=== PATIENT | male | born 1990 | race African-American/Black ===

== ENCOUNTER 2016-03-19 05:23 | Day surgery (SDC) | payer BC ==
[2016-03-13 09:56] LABS: APPEARANCE,URINE CLEAR; BILIRUBIN,URINE NEGATIVE (NEGATIVE); GLUCOSE, URINE NEGATIVE (NEGATIVE); KETONES,URINE NEGATIVE (NEGATIVE); LEUKOCYTE ESTERASE,URINE NEGATIVE (NEGATIVE); NITRITE,URINE NEGATIVE (NEGATIVE); PROTEIN,URINE NEGATIVE (NEGATIVE); URINE SPECIFIC GRAVITY 1.021; UROBILINOGEN,URINE NEGATIVE mg/dL (<2.0)
[2016-03-13 11:03] LABS: HEMATOCRIT 40.5 % (37.9-51.0); HEMOGLOBIN 13.1 g/dL (13.5-17.0); HGB HCT DIFFERENCE -1.2; MEAN CORPUSCULAR HEMOGLOBIN 27.2 pg (27.0-33.4); MEAN CORPUSCULAR HGB CONC 32.3 g/dL (32.0-36.0); MEAN CORPUSCULAR VOLUME 84 fl (80-97); RED BLOOD COUNT 4.81 10^6/uL (4.35-5.55); RED CELL DISTRIBUTION WIDTH 13.3 % (11.5-14.0)
[2016-03-13 11:31] LABS: ANION GAP 13 (5-19); BLOOD UREA NITROGEN 17 mg/dL (7-20); CALCIUM 9.2 mg/dL (8.4-10.2); CARBON DIOXIDE 29 mmol/L (22-30); CHLORIDE 102 mmol/L (98-107); CREATININE RESULT 1.11 mg/dL (0.52-1.25); GLUCOSE 88 mg/dL (75-110); POTASSIUM 4.6 mmol/L (3.6-5.0); SODIUM 144.4 mmol/L (137-145)
--- NOTE | 2016-03-13 14:50 | EKG REPORT ---
SEVERITY:- OTHERWISE NORMAL ECG - SINUS ARRHYTHMIA, RATE [id number] : Confirmed by: Zenon Medina 13-Mar-2016 14:49:45
[~2016-03-19 05:23] MED LIST: CEFAZOLIN 2 GM/D5W RTU 2 GM/50 ML RTUPB IV PRN; LACTATED RINGERS 1000 ML IV PRN; LIDOCAINE 0.5% INJ-PF (5 MG/ML) 50 ML SDV SUBCUT PRN
[2016-03-19] MEDS ORDERED: BUPIVACAINE HCL 0.5%-EPI 1:200000 INJ/PF 30 ML VIAL ONE (06:18)
[2016-03-19] MEDS ORDERED: EPINEPHRINE INJ/PF 1 MG/1 ML AMPULE ONE (06:18)
[2016-03-19] MEDS ORDERED: ALBUTEROL SULFATE 0.083% NEB 2.5 MG/3 ML AMPUL NEB ONE ×2 (07:01→12:35)
[2016-03-19] MEDS ORDERED: HYDROMORPHONE HCL INJ/PF 2 MG/ML AMPULE ONE (07:14)
[2016-03-19] MEDS ORDERED: FENTANYL CITRATE INJ/PF 250 MCG/5 ML AMPULE ONE ×2 (07:14→08:14)
[2016-03-19] MEDS ORDERED: MIDAZOLAM 2 MG/2 ML INJ ONE (07:15)
[2016-03-19] MEDS ORDERED: PROPOFOL INJ 200 MG/20 ML VIAL IV ONE ×2 (07:15→08:15)
[2016-03-19] MEDS ORDERED: ACETAMINOPHEN 100 ML IV ONE (07:15)
[2016-03-19] MEDS ORDERED: ESMOLOL HCL INJ/PF 100 MG/10 ML SDV IV ONE (08:16)
[2016-03-19] MEDS ORDERED: DEXMEDETOMIDINE INJ 80 MCG/20 ML VIAL IV ONE (08:23)
[2016-03-19] MEDS ORDERED: ALBUTEROL SULFATE HFA (90 MCG/PUFF) 200 PUFF/8.5 GM MDI IH ONE (08:23)
[2016-03-19] MEDS ORDERED: FENTANYL CITRATE INJ/PF 100 MCG/2 ML AMPUL IV PRN ×3 (09:13)
[2016-03-19] MEDS ORDERED: PROMETHAZINE HCL INJ 25 MG/1 ML VIAL IV PRN ×2 (09:13)
[2016-03-19] MEDS ORDERED: OXYCODONE-ACETAMINOPHEN 5-325 MG TABLET PO PRN ×3 (09:13→11:20)
[2016-03-19] MEDS ORDERED: DIPHENHYDRAMINE HCL 50 MG/ML VIAL IV PRN (09:13)
[2016-03-19] MEDS ORDERED: MORPHINE SULFATE 10 MG/ML INJ IV PRN (09:13)
[2016-03-19] MEDS ORDERED: MEPERIDINE HCL/PF INJ 25 MG/1 ML DISP.SYRIN IV PRN (09:13)
[2016-03-19] MEDS ORDERED: BUPIVACAINE HCL 0.5 % INJ/PF 30 ML SDV ONE (10:24)
--- NOTE | 2016-03-19 11:16 | Operative Report ---
Operative Report DATE OF SURGERY: 03/19/16 PREOPERATIVE DIAGNOSIS: Left knee anterior cruciate ligament tear. medial and lateral menisci tears POSTOPERATIVE DIAGNOSIS: Same OPERATION: Left knee arthroscopy with anterior cruciate ligament reconstruction using Achilles allograft. Medial and lateral partial meniscectomy. Lateral meniscus repair SURGEON: OCTAVIANO MCFADDEN ANESTHESIA: GA COMPLICATIONS: None ESTIMATED BLOOD LOSS: 10 mL PROCEDURE: Patient was brought to the operating room and successfully induced and intubated in a the supine position. Once the tube was secured a thigh tourniquet was applied to the left lower extremity was prepped and draped in a normal surgical fashion. Timeout was done identifying the left knee has a correct site. The extremity was exsanguinated with an Esmarch and then the tourniquet was inflated at 300 mmHg 0.25% of Marcaine was injected into the anticipated portal sites. 11 blade was used to establish the anterolateral portal. Scope was introduced and the capsule was distended with sterile saline solution. Under direct visualization the anteromedial portal sites was established first by applying a spinal needle and then established with the 11 blade. Probe was introduced and a diagnostic scope was done. Probe was used and noted that the patient had a peripheral radial tear in the midportion of the medial meniscus and lateral meniscus. The lateral meniscus also had a longitudinal tear in the posterior horn amenable for fixation. I proceeded to use meniscal biter and shaver to do my partial resection of the radial tears of both menisci and I used meniscal cinch to repair the longitudinal peripheral tear of the posterior horn. Only required 2 stitches to repair. I turned my intention now for the anterior cruciate ligament reconstruction.At this point I used the combination of 5.5 mm shaver and 50 radiofrequency ablator to do my debridement of the torn anterior cruciate ligament and expose the lateral wall. I used a chondral pick to rosa where I would like to place my femoral tunnel. This was confirmed with the medial [id number] guide. I flexed the knee as much as possible and use my spade tip guidepin and drilled through. I was able to measure about a 30 mm tunnel before I pierced the cortex and passed the pin through the lateral aspect of the thigh. I used the 10 mm low-profile reamer then to do my femoral tunnel and stopped at 25 mm in depth. I used a shaver then to clean out the bony debris. I visualized the tunnel with a camera and make sure had a back wall and did not pierced the lateral cortex. At this point I fed a FiberWire through the eyelet and passed it through the lateral aspect of the thigh. This FiberWire were then later on the shuttle through the tibial tunnel to shuttle the graft. In the meantime it was clamped outside the skin. At this point I grabbed my retro-cutter guide which was marked at [address] on the anterior cruciate ligament footprint on the tibial side. This had been cleaned off with a shaver and bur to Fregosi ablator as well. I used the scope anterior horn of the lateral meniscus as a guide as well as 7 mm anterior to the PCL. Once I was happy with the placement I did a medial incision and measured the tibial tunnel to be []. Once again I use the shaver to clean out the debris in the knee. The Achilles was preparing the back table and the made sure that I was able to pass through it 10 mm tunnel with the bone plug side and the tendinous portion. The graft had been placed in a moist sponge and ready for insertion once the tunnels were completed. I used a probe to grabbed the have the portion of the FiberWire suture that was left in the femoral tunnel and passed it through the tibial tunnel. At this point we shuttled the Achilles tendon allograft through the tibial tunnel into the femoral tunnel successfully using the bone plug to fit nicely in the femoral tunnel. I proceeded to notch the tunnel and placed a nitinol wire. I placed a 7 x 23mm bicomposite screw securing the bone plug in the femoral tunnel. I then turned my attention to the tibial tunnel where I notched it and then placed a nitinol wire for placement of the screw. While holding the leg in a reverse Goldie position by my certified medical assistant I pulled tension on the tibial side of the graft and placed my interference screw securing the graft. Goldie was used to showing good endpoint and minimal translation. Scope was introduced and I used a probe to check the tension on the anterior cruciate ligament graft. I was satisfied with the tension so at this point fluid was removed from the knee and the instruments were removed. I proceeded to close my 2 portal sites with 3-0 nylon and the tibial incision with 0 Vicryl to Vicryl and 2-0 nylon. Xeroform, 4 x 4, AVD pad, Sof-Rol was applied and then overwrapped with an Thiago bandage. Tourniquet was let down and the drapes were removed. Patient was extubated and sent to PACU in stable condition.
--- NOTE | 2016-03-19 11:19 | PDOC DISCHARGE SUMMARY ---
Discharge Summary (SDC) - Discharge Final Diagnosis: Status post left knee arthroscopy with anterior cruciate ligament reconstruction and partial medial lateral meniscectomy with lateral meniscus repair. Date of Surgery: 03/19/16 Condition: Fair Treatment or Instructions: Patient instructed to follow up in 10-14 days. Patient instructed to keep dressing dry clean and intact for 4 days and then allowed to remove. At that point patient can shower and apply Band-Aids as needed. Patient can weight-bear as tolerated and do range of motion exercises as tolerated. Crutches for support and safety. Can wean crutches once stable on his feet. Patient instructed to call the office if patient develops fevers chills redness and drainage from the surgical sites. Prescriptions: Oxycodone HCl/Acetaminophen [Percocet 5-325 mg Tablet] 1 - 2 tab PO ASDIR PRN # 40 tablet PRN Reason: Discharge Diet: As Tolerated Respiratory Treatments at Home: Deep Breathing/Coughing, Incentive Spirometer Discharge Activity: No Driving, Keep Legs Elevated, No Lifting/Push/Pulling Home Care Assistance: None Needed Adaptive Devices on Discharge: Axillary Crutches Report the Following to Your Physician Immediately: Shortness of Breath, Vomiting, Fever over 101 Degrees, Unusual Bleeding, Redness, Swelling, Warmth
[2016-03-19] MEDS ORDERED: ONDANSETRON HCL INJ/PF 4 MG/2 ML SDV IV PRN (11:21)
[2016-03-19] MEDS ORDERED: SUCCINYLCHOLINE CHLORIDE INJ 200 MG/10 ML VIAL ONE (13:13)
[2016-03-19] MEDS ORDERED: ONDANSETRON HCL INJ/PF 4 MG/2 ML SDV ONE (13:13)
[2016-03-19] MEDS ORDERED: DEXAMETHASONE SOD PHOSPHATE INJ 4 MG/1 ML VIAL ONE (13:13)
[2016-03-19] MEDS ORDERED: PHENYLEPHRINE HCL INJ/PF 10 MG/1 ML SDV ONE (13:13)
[2016-03-19] MEDS: KETOROLAC TROMETHAMINE INJ/PF 30 MG/1 ML SDV IV PRN ×2 (17:09→17:31)
[2016-03-19] MEDS: OXYCODONE-ACETAMINOPHEN 5-325 MG TABLET PO PRN ×2 (17:09→18:57)
[2016-03-19 20:25] VITALS: BP 149/87
== END 2016-03-19 21:04 | disposition home or self-care (01) ==
LOC: OROUT 05:23 → 3W 12:15 → OROUT 21:04
PROVIDERS: ATTEND Orthopaedic Surgery
PROC: 0SBD4ZZ Excision of Left Knee Joint, Percutaneous Endoscopic Approach (ICD-10-PCS; 2016-03-19)
PROC: 0MU Bursae and Ligaments, Supplement (ICD-10-PCS; 2016-03-19)
PROC: 0SBD4ZZ Excision of Left Knee Joint, Percutaneous Endoscopic Approach (ICD-10-PCS; principal; 2016-03-19 07:30)
DX: S83.511D Sprain of anterior cruciate ligament of right knee, subsequent encounter (principal); S83.222D Peripheral tear of medial meniscus, current injury, left knee, subsequent encounter; S83.262D Peripheral tear of lateral meniscus, current injury, left knee, subsequent encounter; X58.XXXD Exposure to other specified factors, subsequent encounter; E66.9 Obesity, unspecified; F17.210 Nicotine dependence, cigarettes, uncomplicated; Z68.41 Body mass index [BMI] 40.0-44.9, adult
CPT/HCPCS: 93005; 36415; 85027; 80048; 81001; 93010; 94762; 29880; 29888; C1713; J2250; J3490 ×4; J1100; J0171; J3010; J1885; J1170; J2370; J0330; J2405; J2704; J0690; J0131; 1400